=== PATIENT | male | born 1990 | race African-American/Black ===

== ENCOUNTER 2016-04-30 09:09 | Emergency (ER) ==
[2016-04-30 09:17] VITALS: BP 169/111
[2016-04-30] MEDS ORDERED: DECADRON IM ONE (10:20)
--- NOTE | 2016-04-30 10:23 | PROVIDER DOCUMENTATION ---
HPI-General Adult <JacobSaraleslie Broussard - Last Filed: 04/30/16 10:21> - General Source: patient - History of Present Illness -Gen Adult Nature of Presenting Problems: Pt is 25 y/o M presents to the ED with eczema like rash. Pt states worsening of rash. Pt states unsure of onset of rash. Pt denies recent illness or drug use Location of Pain/Injury: reports: head, upper extremity (bilateral forearms and hands) Pain Radiation: reports: no radiation Quality of Pain: reports: none Severity: reports: mild Onset/Duration: reports: unsure Timing: reports: still present Context/Activities at Onset: reports: light activity Modifying Factors: improves with: nothing Associated Symptoms: reports: rash. denies: anxiety, arm pain, back/neck pain, chest pain, constipation, cough, diaphoresis, diarrhea, dizziness, EENT symptoms , fatigue, fever/chills, genitourinary problems, headaches, heartburn, joint pain, loss of appetite, malaise, muscle aches, sinus congestion/drainage, nausea , seizure, shortness of breath, sensory/motor loss, pain with inspiration, swelling/mass in abdomen, syncope, vomiting, weakness, trouble walking Similar Symptoms Previously?: Yes Recently seen or treated by another doctor?: No <Kely Villalobos - Last Filed: 04/30/16 10:35> - General Chief Complaint: Sores/Lesions Stated Complaint: BLISTERS ON HANDS Time Seen by Provider: 04/30/16 10:12 Allergies/Adverse Reactions: Patient Allergies Allergy/AdvReac Type Severity Reaction Status Date / Time No Known Allergies Allergy Verified 01/12/16 19:25 Home Medications: Home Medication List Medication Instructions Recorded Confirmed Last Taken Type Aspirin 325 mg PO DAILY #90 tablet 03/01/15 01/12/16 Unknown Rx Carvedilol [Coreg] 6.25 mg PO BID #60 tablet 03/01/15 01/12/16 Unknown Rx Furosemide [Lasix] 40 mg PO BID #180 tablet 03/01/15 01/12/16 Unknown Rx Hydralazine [Apresoline] 50 mg PO TID@0600,1300,1999 #180 03/01/15 01/12/16 Unknown Rx tablet Isosorbide Dinitrate [Isordil] 40 mg PO TID@0600,1300,1999 #180 03/01/15 Unknown Rx tablet LISINOpril [Prinivil] 20 mg PO BID #120 tablet 03/01/15 01/12/16 Unknown Rx PRAVAstatin [Pravachol] 40 mg PO QHS #90 tablet 03/01/15 01/12/16 Unknown Rx Spironolactone [Aldactone] 25 mg PO QAM #90 tablet 03/01/15 01/12/16 Unknown Rx Bisacodyl [Dulcolax] 10 mg GA QHS #20 supp 01/10/16 01/12/16 Unknown Rx Na Phos,M-B/Na Phos,Di-Ba [Fleet 133 ml GA HS PRN PRN #3 enema 01/10/16 Unknown Rx Enema] Ondansetron Odt [Zofran 8Mg Odt] 8 mg PO Q8H PRN PRN #20 tablet 01/10/16 Unknown Rx Polyethylene Glycol 3350 [Miralax] 255 gm PO DAILY #1 powder 01/10/16 01/12/16 Unknown Rx Amoxicillin 875 mg PO BID #20 tablet 01/12/16 Unknown Rx Carbamide Peroxide/Sea Water [[facility] 113 ml OT DIRECTED #1 combo..pkg 04/30/16 Unknown Rx Ear Wax Cleansing System] Prednisone [Deltasone] 20 mg PO DIRECTED #12 tablet 04/30/16 Unknown Rx Triamcinolone 0.1% Cr [Kenalog 1 applicatn TOP TID #1 tube 04/30/16 Unknown Rx 0.1% Cream] Review of Systems - Adult - REVIEW OF SYSTEMS - ADULT Constitutional: denies: chills, fever Eyes: denies: blurred vision, double vision Ears, Nose, Mouth & Throat: reports: ear pain (L). denies: nose pain, throat pain Cardiovascular: denies: chest pain, edema, heart murmur, irregular heart rate Respiratory: denies: cough, shortness of breath, wheezing Gastrointestinal: denies: abdominal pain, diarrhea, nausea, vomiting Genitourinary: denies: dysuria, hematuria Musculoskeletal: denies: bone pain, joint pain, neck pain Integumentary: reports: rash. denies: hives, itching Neurological: denies: dizziness/vertigo, headache/migraines Psychiatric: reports: no symptoms reported Endocrine: reports: no symptoms reported Hematologic/Lymphatic: reports: no symptoms reported Allergic/Immunologic: reports: no symptoms reported All Other Systems: Reviewed and Negative <Kely Villalobos - Last Filed: 04/30/16 10:35> Past History - Adult - PAST MEDICAL HISTORY-ADULT Major Childhood Illnesses: reports: denies history Cardiovascular: reports: CHF, HTN Respiratory: reports: COPD, pneumonia Gastrointestinal: reports: denies history Obstetrical/Gynecological: reports: denies history Genitourinary: reports: denies history Musculoskeletal: reports: denies history Neurological: reports: denies history Endocrine/Immune: reports: denies history Other Conditions: reports: denies history - PRIOR SURGERIES/PROCEDURES Surgical/Procedure History: reports: orthopedic (extremity) - IMMUNIZATION STATUS Childhood Immunizations: See Nurse Assessment Flu Vaccine: See Nurse Assessment - FAMILY HISTORY Family History: reviewed, not pertinent <Sara James - Last Filed: 04/30/16 10:21> - PAST MEDICAL HISTORY-ADULT Review of Records: reports: Nursing Assessment Review, Medications Reviewed, Social history reviewed & non-contributory. Major Childhood Illnesses: reports: denies history Cardiovascular: reports: CHF, HTN, hyperlipidemia Respiratory: reports: denies history Gastrointestinal: reports: denies history Obstetrical/Gynecological: reports: denies history Genitourinary: reports: denies history Musculoskeletal: reports: denies history Neurological: reports: denies history Endocrine/Immune: reports: denies history Other Conditions: reports: denies history - PRIOR SURGERIES/PROCEDURES Surgical/Procedure History: reports: reviewed, not pertinent - IMMUNIZATION STATUS Childhood Immunizations: See Nurse Assessment Flu Vaccine: See Nurse Assessment - FAMILY HISTORY Family History: reviewed, not pertinent - SOCIAL HISTORY Smoking: cigarettes, less than 1 pack/day Provider spent 3-5 mins advising pt. on dangers of tobacco.: Discussed manners to quit use, and f/u contacts for add'l counseling. Substance Use: denies Living Situation: family <Kely Villalobos - Last Filed: 04/30/16 10:35> Physical Exam-General - PHYSICAL EXAM-ADULT Initial Vital Signs Reviewed: Yes - CONSTITUTIONAL General Appearance: appears well, alert, no apparent distress - EYES Eyes: PERRL/EOMI, pink conjunctivae, fundi clear, no AV nicking - HEAD, EARS, NOSE, MOUTH & THROAT HENMT: normocephalic/atraumatic, moist mucous membranes, normal ENT inspection, pharynx normal, TM abnormal (wax impaction to L ear), other (dandruff present) - NECK Neck: non-tender, full range of motion, supple, normal inspection - RESPIRATORY Respiratory: chest non-tender, lungs clear, normal breath sounds, no pleuratic chest pain, no respiratory distress, no accessory muscle use - CARDIOVASCULAR Cardiovascular: normal peripheral pulses, regular rate, rhythm, no edema, no gallop, no JVD, no murmur - GASTROINTESTINAL (ABDOMEN) Abdominal Exam: normal bowel sounds, non tender, soft, no organomegaly, no pulsatile mass - LYMPHATIC Lymphatic: no adenopathy - MUSCULOSKELETAL Back Exam: normal inspection, no CVA tenderness, no vertebral tenderness Extremity: normal range of motion, non-tender, normal gait, normal inspection, no pedal edema, no calf tenderness, normal capillary refill - SKIN Integumentary: normal color, normal turgor, warm/dry, rash (eczema like rash to bilateral forearm and hands with plaquing), other (drandruff to scalp) - NEUROLOGIC Neurologic: grossly normal - PSYCHIATRIC Psych/Mental Status: normal mood/affect, oriented x 3 <Kely Villalobos - Last Filed: 04/30/16 10:35> Progress - PLAN OF CARE/RESULTS Progress/Plan/Lab Results: Orders Category Date Time Status Dexamethasone [Decadron] Med 04/30/16 10:20 Discontinued 10 mg IM NOW ONE Vital Signs - 24 hr 04/30/16 09:15 Temperature 97.6 F Pulse Rate 84 Respiratory 18 Rate Blood Pressure 169/111 O2 Sat by Pulse 100 Oximetry <Kely Villalobos - Last Filed: 04/30/16 10:35> Departure - Departure Time of Disposition Order: 10:21 Certified Medical Emergency: Emergent <Sara James - Last Filed: 04/30/16 10:21> <Kely Villalobos - Last Filed: 04/30/16 10:35> - Departure DIAGNOSIS: Eczema, dyshidrotic Cerumen impaction Qualifiers: Laterality: left Qualified Code(s): H61.22 - Impacted cerumen, left ear Disposition: HOME 01 Condition: Stable Additional Instructions: Follow up with your primary care physician ED Follow Up Instructions: You have been treated by a care provider in the Emergency Department. These instructions are being provided to you so you can have an understanding of how to care for yourself upon discharge. Upon discharge from the Emergency Department, you are responsible for making arrangements for follow-up care by a physician of your choice. Take all prescribed medications as directed. Return to the Emergency Department immediately for any new or worsening symptoms. You may call the Physician Referral phone number at [phone] to obtain a list of Physicians who are taking new patients. Prescriptions: Carbamide Peroxide/Sea Water [[facility] Ear Wax Cleansing System] 113 ml OT DIRECTED #1 combo..pkg Prednisone [Deltasone] 20 mg PO DIRECTED #12 tablet Triamcinolone 0.1% Cr [Kenalog 0.1% Cream] 1 applicatn TOP TID #1 tube Referrals: None,PCP [Primary Care Provider] - Samantha Goff MD [STAFF PHYSICIAN] - Forms: Return to School/Parent Work Instructions: Pruritus, Carbamide Peroxide ear solution, Cerumen Impaction, Prednisone delayed-release tablets, Triamcinolone skin cream, ointment, lotion, or aerosol Attestation - Scribe Verification/Attestation Scribe:: Kely Villalobos Acting as Scribe for:: Sara James Scribe documention review:: This chart was documented by a scribe and accurately reflects the service the provider performed and the decisions made by the provider. <Kely Villalobos - Last Filed: 04/30/16 10:35> Physician Attestation
== END 2016-04-30 10:37 | disposition home or self-care (01) ==
LOC: P.ED 09:09
DX: L30.1 Dyshidrosis [pompholyx] (principal); H61.22 Impacted cerumen, left ear; R21 Rash and other nonspecific skin eruption; H92.02 Otalgia, left ear; L21.0 Seborrhea capitis; I50.9 Heart failure, unspecified; I10 Essential (primary) hypertension; J44.9 Chronic obstructive pulmonary disease, unspecified; F17.210 Nicotine dependence, cigarettes, uncomplicated; Z79.82 Long term (current) use of aspirin; Z79.899 Other long term (current) drug therapy; Z71.6 Tobacco abuse counseling
CPT/HCPCS: 99281

== ENCOUNTER 2018-08-18 15:15 | Inpatient (IN) ==
[2018-08-18] MEDS ORDERED: NS 1,000 ML IV ONE ×3 (15:46→15:47)
[2018-08-18] MEDS ORDERED: MORPHINE IV ONE (16:11)
[2018-08-18] MEDS ORDERED: SODIUM CHLORIDE 0.9% INJ ONE (16:13)
[2018-08-18] MEDS ORDERED: PHENERGAN IV ONE (16:13)
[2018-08-18 16:15] LABS: BASO# 0.02 X1000 (0.0-0.2); BASO% 0.1 % (0.0-0.8); HEMATOCRIT 45.2 % (42.0-52.0); HEMOGLOBIN 16.4 g/dL (14.0-18.0); IMM GRAN# 0.11 X1000 (0.0-0.04); IMM GRAN% 0.8 % (0.0-0.5); LYMPH# 0.28 X1000 (1.2-3.4); LYMPH% 2.1 % (20.5-51.1); MCH 30.8 PG (27-31); MCHC 36.3 g/dL (33-37); MCV 84.8 FL (81-99); MONO# 0.59 X1000 (0.11-0.59); MONO% 4.4 % (1.7-9.3); MPV 11.6 FL (7.4-10.4); NEUT# 12.48 X1000 (1.4-6.5); NEUT% 92.6 % (42.2-75.2); PLT 112 X1000 (130-400); RBC 5.33 XMIL (4.7-6.1); RDW 11.7 % (11.5-14.5); WBC 13.48 X1000 (4.8-10.8)
[2018-08-18 16:21] LABS: INR 1.4; PROTIME 18.2 Seconds (11.0-16.0)
[2018-08-18 16:23] LABS: LYMPHS 4 % (21-51); MONO 6 % (1-9); SEGS 90 % (42-75)
[2018-08-18 16:34] LABS: ALB/GLOB RATIO 1.2; ALBUMIN 3.9 g/dL (3.5-5.0); CALCIUM 9.1 mg/dL (8.8-10.2); CREATININE 2.2 mg/dL (0.7-1.2); POTASSIUM 3.4 mmol/L (3.5-5.1); TOTAL BILIRUBIN 3.48 mg/dL (0.20-1.00); TOTAL PROTEIN 7.2 g/dL (6.3-8.3)
--- NOTE | 2018-08-18 17:00 | Diag Imaging Result Doc PS360 ---
EXAM: CHEST-2 VIEWS 08/18/2018 HISTORY: shortness of breath TECHNIQUE: AP and lateral chest COMMENT: The left ventricle appears enlarged. The lungs are clear. The inspiration is suboptimal. Otherwise are has been no significant change since 08/16/2018. IMPRESSION: Cardiomegaly. Electronically signed by Janak Farr 08/18/2018 4:57 PM
[2018-08-18 17:49] LABS: URINE SOURCE CLEAN CATCH
[2018-08-18 17:58] LABS: BILIRUBIN URINE SMALL (NEGATIVE); BLOOD URINE MODERATE (NEGATIVE); COLOR ORANGE; GLUCOSE URINE NEGATIVE (NEGATIVE); KETONE URINE TRACE mg/dL (NEGATIVE); LEUKOCYTES URINE MODERATE (NEGATIVE); NITRITE URINE NEGATIVE (NEGATIVE); PROTEIN URINE 300 mg/dL (NEGATIVE); SP GRAVITY URINE 1.034; TURBIDITY URINE TURBID (CLEAR); UR EPITHELIAL CELLS >10 /HPF (<10); URINE BACTERIA NEGATIVE /HPF; URINE RBC <10 /HPF (<10); URINE WBC TNTC /HPF (<10); UROBILINOGEN URINE 2 mg/dL (NORMAL)
[2018-08-18 18:14] LABS: UR AMPHETAMINES QUAL NONE DETECTED (NONE DETECT); UR BARBITUATES QUAL NONE DETECTED (NONE DETECT); UR BENZODIAZEPIN QUAL NONE DETECTED (NONE DETECT); UR CANNABINOIDS QUAL PRESUMPTIVE POSITIVE (NONE DETECT); UR COCAINE QUAL NONE DETECTED (NONE DETECT); UR METHADONE QUAL NONE DETECTED (NONE DETECT); UR OPIATES QUAL PRESUMPTIVE POSITIVE (NONE DETECT); UR OXYCODONE QUAL NONE DETECTED (NONE DETECT); UR PCP QUAL NONE DETECTED (NONE DETECT)
[2018-08-18 18:15] LABS: URINE YEAST PRESENT
[2018-08-18 18:16] LABS: URINE CASTS GRANULAR PRESENT; URINE CRYSTALS NONE SEEN; URINE SMALL ROUND CELLS NONE SEEN
--- NOTE | 2018-08-18 18:51 | PROVIDER DOCUMENTATION ---
This chart was entered by Samantha Ardon Scribe, acting as scribe for Mauricio Mahajan DO. HPI-General Adult - General Source: patient, family - History of Present Illness -Gen Adult Nature of Presenting Problems: 27 yobm presents to the ed with c/o KIMBALL, nausea, vomiting, diaphoresis, fever, tachycardia and RUQ tenderness with palpation for 2 weeks. pt sts went to [facility] er on 08/16/18 and was given abx but did not get it filled. pt sts sx have became much worse. pt on exam is ill appearing and is actively vomiting radiologist read chest xray as negative on 08/16/18 Location of Pain/Injury: reports: abdomen, generalized (generalized weakness) Quality of Pain: reports: cramping Severity: reports: moderate Onset/Duration: reports: other (2 weeks) Timing: reports: still present, getting worse Context/Activities at Onset: reports: light activity Modifying Factors: improves with: nothing Associated Symptoms: reports: cough, fatigue, fever/chills, malaise, muscle aches, nausea, vomiting. denies: back/neck pain, chest pain, shortness of breath Similar Symptoms Previously?: Yes Recently seen or treated by another doctor?: Yes (saw dr lopez 08/16/18) <Mauricio Mahajan - Last Filed: 08/18/18 18:50> <Chloe Gonzalez - Last Filed: 08/18/18 20:41> - General Chief Complaint: Headache Stated Complaint: FEVER,KIMBALL Time Seen by Provider: 08/18/18 15:36 Allergies/Adverse Reactions: Patient Allergies Allergy/AdvReac Type Severity Reaction Status Date / Time Latex, Natural Rubber Allergy RASH Verified 02/08/17 20:41 Home Medications: Home Medication List Medication Instructions Recorded Confirmed Last Taken Type Carvedilol [Coreg] 6.25 mg PO BID #60 tablet 03/01/15 02/01/17 01/30/17 20:00 Rx PRAVAstatin [Pravachol] 40 mg PO QHS #90 tablet 03/01/15 02/01/17 01/30/17 20:00 Rx Spironolactone [Aldactone] 25 mg PO QAM #90 tablet 03/01/15 02/01/17 01/31/17 07:00 Rx Esomeprazole [Nexium] 40 mg PO DAILY 01/31/17 02/01/17 01/31/17 07:00 History Hydralazine [Apresoline] 25 mg PO TID@0600,1300,2000 tablet 02/06/17 Unknown Rx Isosorbide Dinitrate [Isordil] 20 mg PO TID@0600,1300,2000 tablet 02/06/17 Unknown Rx LISINOpril [Prinivil] 10 mg PO DAILY tablet 02/06/17 Unknown Rx Torsemide [Demadex] 20 mg PO DAILY #30 tab 02/06/17 Unknown Rx Hydrocodone/Acetaminophen [[place] 1 ea PO Q6H PRN #12 tab 02/09/17 Unknown Rx 5-325 Tablet] Ondansetron HCl [Zofran] 1 tab PO Q6H PRN PRN #15 tab 02/09/17 Unknown Rx Diphenhydramine [Benadryl] 25 mg PO Q4-6H PRN PRN #20 cap 07/27/17 Unknown Rx Loratadine [Claritin] 10 mg PO DAILY #10 tab 07/27/17 Unknown Rx Methylprednisolone [Medrol Dosepak] 4 mg PO DIRECTED #1 pkg 07/27/17 Unknown Rx Pantoprazole [Protonix] 40 mg PO DAILY@0700 #10 tab 07/27/17 Unknown Rx Tacrolimus [Protopic] 30 gm TP BID #1 oint...g. 01/06/18 Unknown Rx Hydrochlorothiazide 25 mg PO TID PRN PRN #10 tab 06/23/18 Unknown Rx LISINOpril [Prinivil] 10 mg PO DAILY #10 tab 06/23/18 Unknown Rx Amoxicillin/Pot Clavulanate 875 mg PO Q12HR #14 tab 08/16/18 Unknown Rx [Augmentin] Benzonatate [Tessalon Perle] 100 mg PO TID PRN #20 cap 08/16/18 Unknown Rx Review of Systems - Adult - REVIEW OF SYSTEMS - ADULT ROS:: ROS per family Constitutional: reports: see HPI, chills, fever Eyes: reports: no symptoms reported Ears, Nose, Mouth & Throat: reports: no symptoms reported Cardiovascular: denies: chest pain, palpitations Respiratory: reports: see HPI, cough. denies: shortness of breath, wheezing Gastrointestinal: reports: see HPI, abdominal pain, nausea, poor appetite, vomiting. denies: diarrhea Genitourinary: reports: no symptoms reported Musculoskeletal: reports: see HPI, muscle aches Integumentary: reports: no symptoms reported Neurological: reports: see HPI, headache/migraines. denies: ataxia, dizziness/vertigo, slurred speech, syncope, tremors Psychiatric: reports: no symptoms reported Endocrine: reports: see HPI, excessive sweating, increased thirst Hematologic/Lymphatic: reports: no symptoms reported Allergic/Immunologic: reports: no symptoms reported All Other Systems: Reviewed and Negative <Mauricio Mahajan - Last Filed: 08/18/18 18:50> Past History - Adult - PAST MEDICAL HISTORY-ADULT Review of Records: reports: Old Records Reviewed, Nursing Assessment Review, Medications Reviewed, Social history reviewed & non-contributory. Major Childhood Illnesses: reports: denies history Cardiovascular: reports: CHF, HTN, hyperlipidemia Respiratory: reports: denies history Gastrointestinal: reports: denies history Genitourinary: reports: denies history Musculoskeletal: reports: denies history Hand Dominance: Right Handed Neurological: reports: denies history Psychiatric: reports: denies history Endocrine/Immune: reports: hypoglycemia Other Conditions: reports: denies history - PRIOR SURGERIES/PROCEDURES Surgical/Procedure History: reports: orthopedic (extremity) - IMMUNIZATION STATUS Childhood Immunizations: See Nurse Assessment Flu Vaccine: See Nurse Assessment - FAMILY HISTORY Family History: reviewed, not pertinent - SOCIAL HISTORY Smoking: cigarettes, less than 1 pack/day Provider spent 3-5 mins advising pt. on dangers of tobacco.: Discussed manners to quit use, and f/u contacts for add'l counseling. Substance Use: denies Alcohol Use Frequency: never Living Situation: family <Mauricio Mahajan - Last Filed: 08/18/18 18:50> Physical Exam-General - PHYSICAL EXAM-ADULT Initial Vital Signs Reviewed: Yes - CONSTITUTIONAL General Appearance: alert, moderate distress. negative: appears well (ill appearing) - EYES Eyes: PERRL/EOMI, pale conjunctivae - HEAD, EARS, NOSE, MOUTH & THROAT HENMT: normal ENT inspection. negative: moist mucous membranes (dry oral) - NECK Neck: normal inspection - RESPIRATORY Respiratory: chest non-tender, lungs clear, normal breath sounds, no pleuratic chest pain, no respiratory distress, no accessory muscle use - CARDIOVASCULAR Cardiovascular: normal peripheral pulses, tachycardia (125), systolic murmur - GASTROINTESTINAL (ABDOMEN) Abdominal Exam: normal bowel sounds, soft, tenderness - LYMPHATIC Lymphatic: no adenopathy - MUSCULOSKELETAL Back Exam: normal inspection, no CVA tenderness, no vertebral tenderness Extremity: normal range of motion, non-tender, no calf tenderness, normal capillary refill, pelvis stable - SKIN Integumentary: normal color, diaphoresis - NEUROLOGIC Neurologic: grossly normal, no motor/sensory deficits - PSYCHIATRIC Psych/Mental Status: normal mood/affect, normal thought content, normal thought process, oriented x 3 <Mauricio Mahajan - Last Filed: 08/18/18 18:50> Progress - PLAN OF CARE/RESULTS Progress/Plan/Lab Results: Vital Signs - 8 hr 08/18/18 15:17 Temperature 99.5 F Pulse Rate 70 Respiratory Rate 22 Blood Pressure 129/82 O2 Sat by Pulse Oximetry 97 Orders Category Date Time Status Cardiac Monitoring DIRECTED Care 08/18/18 15:42 Active IV Insertion ORDERED Care 08/18/18 15:42 Active Notify MD of + Sepsis Screen NOW Care 08/18/18 15:42 Active Notify Physician As Ordered Care 08/18/18 15:42 Active CHEST-2 VIEWS [RAD] Stat Exams 08/18/18 15:44 Ordered BLOOD CULTURE [BLDCUL] Stat Lab 08/18/18 15:42 Uncollected CBC WITH DIFF [HEME] Stat Lab 08/18/18 15:42 Uncollected CK PROFILE [SP CHEM] Stat Lab 08/18/18 15:42 Uncollected COMPREHENSIVE METABOLIC PANEL [CHEM] Stat Lab 08/18/18 15:42 Uncollected LACTATE, PLASMA [CHEM] Q3H Lab 08/18/18 15:45 Uncollected LACTATE, PLASMA [CHEM] Q3H Lab 08/18/18 18:45 Uncollected LACTATE, PLASMA [CHEM] Q3H Lab 08/18/18 21:45 Uncollected PROTIME WITH INR [COAG] Stat Lab 08/18/18 15:42 Uncollected PTT [COAG] Stat Lab 08/18/18 15:42 Uncollected TROPONIN T Stat Lab 08/18/18 15:42 Uncollected URINALYSIS W/POSS RFLX CULT [URINALYSIS] Stat Lab 08/18/18 15:42 Uncollected Ns 1000 ml IV Bolus X1 Med 08/18/18 15:46 Ordered 0.9% Sodium Chloride Inj [Ns] 1,000 ml IV 999 mls/hr Oxygen Device Stat Oth 08/18/18 15:42 Active Result Diagrams: 08/18/18 15:55 08/18/18 15:55 - REASSESSMENT Reassessment #1 Time Reassessed: 16:01 (vomiting has improved ) Status: improving - EKG 1 Time of EKG reading by physician:: 15:42 EKG Read and Signed by:: Mauricio Mahajan EKG Interpretation (*Must complete 3 of following elements*): Normal (borderline) Rate: 122 Rhythm: sinus tachycardia [place]: normal QRS: normal SC Interval: normal ST Wave: normal Comments: possible left atrial enlargement - XRAY 1 XRAY: Bilateral XRAY Study: Chest Impression: See EMR Report (EXAM: CHEST-2 VIEWS 08/18/2018 HISTORY: shortness of breath TECHNIQUE: AP and lateral chest COMMENT: The left ventricle appears enlarged. The lungs are clear. The inspiration is suboptimal. Otherwise are has been no significant change since 08/16/2018. IMPRESSION: Cardiomegaly. Electronically signed by Janak Farr 08/18/2018 4:57 PM 08/18/[id number] Interpreting Physician: Janak Farr MD Dictated Date/Time: 08/18/181655 cc: Mauricio Mahajan DO; None,PCP) - CHANGE OF SHIFT REPORT (ED Provider) 1 Report Given and Care Transferred to:: Dr Pace Time of Transfer: 19:00 Items Pending: Labs, CT/MRI Results <Mauricio Mahajan - Last Filed: 08/18/18 18:50> - PLAN OF CARE/RESULTS Progress/Plan/Lab Results: Vital Signs - 8 hr 08/18/18 15:17 08/18/18 15:29 08/18/18 15:30 Temperature 99.5 F Pulse Rate 70 Respiratory Rate 22 Blood Pressure 129/82 112/88 O2 Sat by Pulse Oximetry 97 99 98 08/18/18 15:40 08/18/18 15:50 08/18/18 16:00 Temperature Pulse Rate 123 H 128 H 126 H Respiratory Rate 30 H 18 24 Blood Pressure O2 Sat by Pulse Oximetry 100 97 97 08/18/18 16:05 08/18/18 18:17 Temperature Pulse Rate 128 H 113 H Respiratory Rate 38 H 18 Blood Pressure 138/86 134/84 O2 Sat by Pulse Oximetry 100 100 Laboratory Results - last 24 hr 08/18/18 08/18/18 08/18/18 15:55 15:55 15:55 WBC 13.48 H RBC 5.33 Hgb 16.4 Hct 45.2 MCV 84.8 MCH 30.8 MCHC 36.3 RDW Std Deviation 11.7 Plt Count 112 L MPV 11.6 H Immature Gran % (Auto) 0.8 H Neut % (Auto) 92.6 H Lymph % (Auto) 2.1 L [place] % (Auto) 4.4 Eos % (Auto) 0.0 Baso % (Auto) 0.1 Immature Gran # (Auto) 0.11 H Neut # (Auto) 12.48 H Lymph # (Auto) 0.28 L [place] # (Auto) 0.59 Eos # (Auto) 0.00 Baso # (Auto) 0.02 Segmented Neutrophils 90 H Lymphocytes 4 L Monocytes 6 PT 18.2 H INR 1.40 PTT (Actin FS) 39.0 Sodium 131 L Potassium 3.4 L Chloride 93 L Carbon Dioxide 18 L Anion Gap 20 BUN 35 H Creatinine 2.2 H Estimated GFR/1.73 m2 43 BUN/Creatinine Ratio 16 Glucose 115 H Calculated Osmolality 272 Calcium 9.1 Total Bilirubin 3.48 H AST 106 H ALT 106 H Alkaline Phosphatase 66 Creatine Kinase 54 Troponin T Total Protein 7.2 Albumin 3.9 Globulin 3.3 Albumin/Globulin Ratio 1.2 Amylase Lipase Plasma Lactate Urine Source Urine Color Urine Turbidity Urine pH Ur Specific [place] Urine Protein Ur Glucose (Stick) Ur Ketones (Stick) Urine Blood Urine Nitrite Urine Bilirubin Urobilinogen Dipstick Urine Leukocytes Urine WBC (Auto) Urine RBC (Auto) U Epithel Cells (Auto) Urine Bacteria (Auto) Urine Crystals Small Round Cells Urine Casts Urine Yeast-like Cells Urine Opiates Screen Ur Oxycodone Screen Ur Methadone, Qual Ur Barbiturates Screen Ur Phencyclidine Scrn Ur Amphetamines Screen U Benzodiazepines Scrn Urine Cocaine Screen U Cannabinoids Screen 08/18/18 08/18/18 08/18/18 15:55 15:55 15:55 WBC RBC Hgb Hct MCV MCH MCHC RDW Std Deviation Plt Count MPV Immature Gran % (Auto) Neut % (Auto) Lymph % (Auto) [place] % (Auto) Eos % (Auto) Baso % (Auto) Immature Gran # (Auto) Neut # (Auto) Lymph # (Auto) [place] # (Auto) Eos # (Auto) Baso # (Auto) Segmented Neutrophils Lymphocytes Monocytes PT INR PTT (Actin FS) Sodium Potassium Chloride Carbon Dioxide Anion Gap BUN Creatinine Estimated GFR/1.73 m2 BUN/Creatinine Ratio Glucose Calculated Osmolality Calcium Total Bilirubin AST ALT Alkaline Phosphatase Creatine Kinase Troponin T < 0.010 Total Protein Albumin Globulin Albumin/Globulin Ratio Amylase 47 Lipase 12 L Plasma Lactate 4.2 H Urine Source Urine Color Urine Turbidity Urine pH Ur Specific [place] Urine Protein Ur Glucose (Stick) Ur Ketones (Stick) Urine Blood Urine Nitrite Urine Bilirubin Urobilinogen Dipstick Urine Leukocytes Urine WBC (Auto) Urine RBC (Auto) U Epithel Cells (Auto) Urine Bacteria (Auto) Urine Crystals Small Round Cells Urine Casts Urine Yeast-like Cells Urine Opiates Screen Ur Oxycodone Screen Ur Methadone, Qual Ur Barbiturates Screen Ur Phencyclidine Scrn Ur Amphetamines Screen U Benzodiazepines Scrn Urine Cocaine Screen U Cannabinoids Screen 08/18/18 08/18/18 08/18/18 15:57 15:57 19:02 WBC RBC Hgb Hct MCV MCH MCHC RDW Std Deviation Plt Count MPV Immature Gran % (Auto) Neut % (Auto) Lymph % (Auto) [place] % (Auto) Eos % (Auto) Baso % (Auto) Immature Gran # (Auto) Neut # (Auto) Lymph # (Auto) [place] # (Auto) Eos # (Auto) Baso # (Auto) Segmented Neutrophils Lymphocytes Monocytes PT INR PTT (Actin FS) Sodium Potassium Chloride Carbon Dioxide Anion Gap BUN Creatinine Estimated GFR/1.73 m2 BUN/Creatinine Ratio Glucose Calculated Osmolality Calcium Total Bilirubin AST ALT Alkaline Phosphatase Creatine Kinase Troponin T Total Protein Albumin Globulin Albumin/Globulin Ratio Amylase Lipase Plasma Lactate 2.5 H Urine Source CLEAN CATCH Urine Color ORANGE Urine Turbidity TURBID Urine pH 6.0 Ur Specific [place] 1.034 Urine Protein 300 A Ur Glucose (Stick) NEGATIVE Ur Ketones (Stick) TRACE A Urine Blood MODERATE A Urine Nitrite NEGATIVE Urine Bilirubin SMALL A Urobilinogen Dipstick 2 A Urine Leukocytes MODERATE A Urine WBC (Auto) TNTC A Urine RBC (Auto) <10 U Epithel Cells (Auto) >10 A Urine Bacteria (Auto) NEGATIVE Urine Crystals NONE SEEN Small Round Cells NONE SEEN Urine Casts GRANULAR PRESENT Urine Yeast-like Cells PRESENT Urine Opiates Screen PRESUMPTIVE POSITIVE A Ur Oxycodone Screen NONE DETECTED Ur Methadone, Qual NONE DETECTED Ur Barbiturates Screen NONE DETECTED Ur Phencyclidine Scrn NONE DETECTED Ur Amphetamines Screen NONE DETECTED U Benzodiazepines Scrn NONE DETECTED Urine Cocaine Screen NONE DETECTED U Cannabinoids Screen PRESUMPTIVE POSITIVE A Orders Category Date Time Status Cardiac Monitoring DIRECTED Care 08/18/18 15:42 Active IV Insertion ORDERED Care 08/18/18 15:42 Completed Notify MD of + Sepsis Screen NOW Care 08/18/18 15:42 Active Notify Physician As Ordered Care 08/18/18 15:42 Active CHEST-2 VIEWS [RAD] Stat Exams 08/18/18 15:[address] ABDOMEN/PELVIS W/O CONTRAST [CT] Stat Exams 08/18/18 18:32 Completed AMYLASE [CHEM] Stat Lab 08/18/18 15:55 Completed BLOOD CULTURE [BLDCUL] Stat Lab 08/18/18 15:55 Results CBC WITH DIFF [HEME] Stat Lab 08/18/18 15:55 Completed CK PROFILE [SP CHEM] Stat Lab 08/18/18 15:55 Completed COMPREHENSIVE METABOLIC PANEL [CHEM] Stat Lab 08/18/18 15:55 Completed LACTATE, PLASMA [CHEM] Lab 08/18/18 19:02 Completed LACTATE, PLASMA [CHEM] Lab 08/18/18 21:45 Uncollected LACTATE, PLASMA [CHEM] Q3H Lab 08/18/18 15:55 Completed LIPASE [CHEM] Stat Lab 08/18/18 15:55 Completed PROTIME WITH INR [COAG] Stat Lab 08/18/18 15:55 Completed PTT [COAG] Stat Lab 08/18/18 15:55 Completed TROPONIN T Stat Lab 08/18/18 15:55 Completed URINALYSIS W/POSS RFLX CULT [URINALYSIS] Stat Lab 08/18/18 15:57 Completed URINE CULTURE [RM] Routine Lab 08/18/18 18:30 Received URINE DRUG SCREEN Stat Lab 08/18/18 15:57 Completed URINE MANUAL MICROSCOPIC [URINALYSIS] Stat Lab 08/18/18 15:57 Completed 0.9% Sodium Chloride Inj [Ns] 1,000 ml Med 08/18/18 15:46 Discontinued IV 999 mls/hr 0.9% Sodium Chloride Inj [Ns] 1,000 ml Med 08/18/18 15:46 Discontinued IV 999 mls/hr 0.9% Sodium Chloride Inj [Ns] 1,000 ml Med 08/18/18 15:47 Discontinued IV 999 mls/hr Morphine Med 08/18/18 16:11 Discontinued 4 mg IV NOW ONE Promethazine [Phenergan] Med 08/18/18 16:13 Discontinued 12.5 mg IV NOW ONE Sodium Chloride 0.9% Med 08/18/18 16:13 Discontinued 10 ml INJ NOW ONE Oxygen Device Stat Oth 08/18/18 15:42 Completed Result Diagrams: 08/18/18 15:55 08/18/18 15:55 - CONSULTS/PCP/HOSPITALIST Notification #1 *Consult/PCP/Hospitalist*: D/W DR LUCERO Time Discussed: 20:35 Consult Disposition: Admit <Chloe Gonzalez - Last Filed: 08/18/18 20:41> Departure - Critical Care Note This patient required my direct & personal management of CC.: Yes Total Time (mins): 32 Critical Care Statement: This patient required my direct personal management to treat or rule out processes, the absence of which, could potentiallly result in sudden, clinically significant life or limb threatening deterioration. <Mauricio Mahajan - Last Filed: 08/18/18 18:50> - Departure Date of Disposition Decision: 08/18/18 Time of Disposition Decision: 20:39 Certified Medical Emergency: Emergent <Chloe Gonzalez - Last Filed: 08/18/18 20:41> - Departure DIAGNOSIS: Congestive heart failure, Nausea and vomiting, Tobacco use disorder, Sepsis, Headache Disposition: ADMITTED INPATIENT 09 Condition: Stable Referrals and Follow-Ups: None,PCP [Primary Care Provider] - Discharge Education: Migraine Headache, [id number] Attestation - Physician/ SHAYY Attestation Patient care was provided by Advanced Practice Provider:: No The physician spent face to face time with patient:: Yes Advanced Practice Provider documentation review:: Supervising physician onsite and consulted in the evaluation and care of this patient. The physician did have a face to face encounter with the patient. <Mauricio Mahajan - Last Filed: 08/18/18 18:50> This chart was documented by the indicated scribe, (Samantha Ardon, Lizabeth) and accurately reflects the services I performed and decisions made by me, Mauricio Mahajan DO, as attested by the provider's signature.
--- NOTE | 2018-08-18 19:10 | Diag Imaging Result Doc PS360 ---
EXAM: CT ABDOMEN/PELVIS W/O CONTRAST 08/18/2018 HISTORY: right upper quadrant pain TECHNIQUE: This exam was performed using automated exposure control, adjustment of mA or kV according to patient size, and/or use of iterative reconstruction technique. COMMENT: The current study is compared with the previous examination of 02/01/2017. Some of the pleural-based opacities which were present on the previous examination are no longer present. There are no new abnormalities. The anasarca which was present previously has largely resolved. The spleen is enlarged measuring over 14 cm in AP dimension. This has increased considerably since the previous study. There is no evidence of cholelithiasis. The pericholecystic fluid which was present previously is no longer present. The pancreas and adrenal glands are within normal limits. The kidneys are without evidence of hydronephrosis or mass. There appears to be a very tiny stone in the lower pole of the left collecting system. The liver is grossly normal given the lack of contrast. There is no evidence of bowel obstruction. The appendix is normal in appearance. The urinary bladder is not distended. There is no evidence of significant adenopathy or abdominal aortic aneurysm. The regional skeleton appears to be intact. IMPRESSION: Splenomegaly. Minimal left nephrolithiasis without evidence of hydronephrosis. Electronically signed by Janak Farr 08/18/2018 7:07 PM
[2018-08-18 20:28] LABS: AMYLASE 47 U/L (20-200); LIPASE 12 U/L (13-60)
[2018-08-18] MEDS ORDERED: ZOSYN 3.375 GM in NS 50 ML IV ONE (20:56)
[2018-08-18] MEDS ORDERED: KLOR-CON PO ONE (21:15)
[2018-08-18] MEDS ORDERED: ZOFRAN IV PRN (22:54)
[2018-08-18] MEDS ORDERED: TYLENOL PO ONE (23:06)
[2018-08-18] MEDS: MORPHINE IV PRN (23:29)
[2018-08-18] MEDS: LOVENOX SUBQ SCH (23:29)
[2018-08-19] MEDS: ZOSYN 2.25 GM in NS 50 ML IV SCH ×2 (02:43→08:26)
[2018-08-19] MEDS ORDERED: VANCOMYCIN IV PER PHARMACY MISC SCH (05:15)
[2018-08-19 06:15] LABS: AGAP 12; ALB/GLOB RATIO 0.8; ALBUMIN 2.8 g/dL (3.5-5.0); ALKALINE PHOSPHATASE 60 U/L (32-122); BUN 31 mg/dL (8-22); CALCIUM 7.9 mg/dL (8.8-10.2); CHLORIDE 97 mmol/L (98-107); COSMO 271; CREATININE 1.4 mg/dL (0.7-1.2); ESTIMATED GFR > 60; GLUCOSE 98 mg/dL (70-104); MAGNESIUM 1.5 mg/dL (1.5-2.7); POTASSIUM 3.4 mmol/L (3.5-5.1); SODIUM 132 mmol/L (136-145); TCO2 23 mmol/L (25-35); TOTAL BILIRUBIN 2.75 mg/dL (0.20-1.00); TOTAL PROTEIN 6.3 g/dL (6.3-8.3)
[2018-08-19 06:25] LABS: GOT 109 U/L (10-34); GPT 115 U/L (10-44)
[2018-08-19 07:16] LABS: BASO# 0.02 X1000 (0.0-0.2); BASO% 0.2 % (0.0-0.8); EOS# 0.02 X1000 (0.0-0.7); EOS% 0.2 % (0.0-10.0); HEMATOCRIT 39.4 % (42.0-52.0); HEMOGLOBIN 14.2 g/dL (14.0-18.0); IMM GRAN# 0.04 X1000 (0.0-0.04); IMM GRAN% 0.4 % (0.0-0.5); LYMPH# 0.74 X1000 (1.2-3.4); LYMPH% 6.8 % (20.5-51.1); MCH 31.3 PG (27-31); MONO# 1.91 X1000 (0.11-0.59); MONO% 17.5 % (1.7-9.3); MPV 12.4 FL (7.4-10.4); NEUT# 8.16 X1000 (1.4-6.5); NEUT% 74.9 % (42.2-75.2); PLT 77 X1000 (130-400); RBC 4.53 XMIL (4.7-6.1); WBC 10.89 X1000 (4.8-10.8)
[2018-08-19] MEDS ORDERED: VANCOMYCIN 1,600 MG in NS 250 ML IV ONE (08:00)
--- NOTE | 2018-08-19 08:07 | EKG Report ---
Test Performed on : 08/18/2018 3:42:20 PM Test Reason : ED. NO EKG ORDER FOR MUSE Blood Pressure : / mmHG Vent. Rate : 122 BPM Atrial Rate : 122 BPM P-R Int : 140 ms QRS Dur : 086 ms QT Int : 306 ms P-R-T Axes : 056 023 023 degrees QTc Int : 436 ms Sinus tachycardia. Possible Left atrial enlargement Borderline ECG When compared with ECG of 23-JUN-2018 10:58, (Unconfirmed) Vent. rate has increased BY 53 BPM Unconfirmed Result
[2018-08-19] MEDS: MORPHINE IV PRN ×2 (09:19→22:43)
--- NOTE | 2018-08-19 10:38 | PROGRESS NOTE ---
DATE: 08/19/2018 SUBJECTIVE: This morning, Mr. Panda was seen in his hospital bed. The mother was at the bedside. He refers to be still having some generalized pains and headaches. OBJECTIVE: Current Vital Signs: Blood pressure 99/74, pulse of 80, respirations 14, temperature 98.4 degrees, the patient is saturating 98% on room air. General: Mr. Panda is a 27-year-old gentleman. He is in bed. No distress. HEENT: Mucosa is pink and moist. Anicteric. Acyanotic. Neck: Supple. No JVD. No carotid bruit. Chest: Good air entry bilaterally. Few crackles posteriorly. Cardiovascular: Regular rate and rhythm. Abdomen: Soft, nontender. Extremities: No pedal edema. ENGAGEMENT QUALITY CONSULTANT: The patient is awake, alert, and oriented. IMAGING AND LABORATORY DATA: WBC is down to 10.89, hemoglobin is 14.2, platelet count of 77,000. Chemistry is also reviewed. Creatinine is 1.4, which is getting better. AST and ALT are minimally elevated. So far, blood culture is showing 2/2 gram-positive cocci. CT scan of the abdomen did show splenomegaly, minimal left nephrolithiasis, without evidence of hydronephrosis. A urine culture is still pending. Urinalysis did show too numerous to count WBCs. ASSESSMENT: 1. Sepsis with gram-positive bacteremia. We are still pending the identity and sensitivity. The patient is on broad-spectrum intravenous antibiotics for now. Infectious Disease will be consulted, and echocardiogram will be ordered to rule out any underlying endocarditis for gram- positive cocci. 2. Acute kidney injury secondary to volume depletion. We are going to continue with fluids for now, and pay very critical attention to the patient's hydration status. 3. History of severe dilated cardiomyopathy with ejection fraction of 20%, presumed to be nonischemic. Note that the patient is currently euvolemic, is actually dehydrated, so we are going to give him a little bit of fluid and pay critical attention to his fluid status. 4. Transaminitis, suspected to be part of the sepsis picture. We will do hepatitis screening to rule out underlying viral hepatitis as well. 5. Lactic acidosis secondary to sepsis. In general, I think Mr. Panda is fairly stable. He is developing gram-positive cocci in the blood. We are going to do an echocardiogram to rule out any endocarditis, and we will get Infectious Disease to see him as well. He is currently on broad-spectrum intravenous antibiotics. cc: Ender Anderson MD
[2018-08-19] MEDS: NS 1,000 ML IV SCH (12:06)
--- NOTE | 2018-08-19 12:53 | Diag Imaging Result Doc PS360 ---
EXAM: US GB < RUQ (LIMITED) HISTORY: elevated T bili and lfts TECHNIQUE: Right upper quadrant ultrasound COMPARISON: 08/18/2018 FINDINGS: Normal inferior vena cava. The aorta is predominantly obscured. No focal hepatic abnormality. There is mild fatty infiltration. No ascites in the right upper quadrant. Normal right kidney. No hydronephrosis. Normal pancreatic head and body. The tail is obscured. Normal gallbladder. No stones. The common bile duct measures 2 mm. IMPRESSION: Mild fatty infiltration of the liver. Electronically signed by Barry Su 08/19/2018 12:51 PM
[2018-08-19] MEDS ORDERED: CUBICIN 500 MG in NS 100 ML IV SCH (15:00)
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
--- NOTE | 2018-08-19 18:34 | GASTROENTEROLOGY CONSULTATION ---
DATE: 08/19/2018 REASON FOR CONSULTATION: Elevated liver function tests. HISTORY OF PRESENT ILLNESS: This is a 27-year-old male who comes in with complaints of headache, nausea, vomiting, fever and abdominal pain over the last 2 week. He initially went to [facility] on 08/16/2018. He was given some antibiotics but did not get the medication filled. His symptoms became worse so he came in to [facility] for further evaluation. The patient has had workup with findings of elevated liver function test. He had an abdominal CT scan that showed splenomegaly, minimal left nephrolithiasis without evidence of hydronephrosis. He had an ultrasound of the abdomen this morning that showed mild fatty infiltration of the liver, normal pancreatic head and body, normal gallbladder with no noted stones and common bile duct measuring 2 mm. Patient had reported some respiratory congestion, fever, right upper quadrant pain with nausea and vomiting. He has a history of congestive heart failure. 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 He states he has had workup in the past for GI symptoms and was told he had gallbladder dysfunction but surgeons did not recommend surgery because of his congestive heart failure. Patient has denied IV drug use. He does have toxicology positive for opiates and cannabinoids. Patient reports about a month ago he took a lot of pain medication and antidepressants and wanted to kill himself. His primary physician is Dr. Poole. PAST MEDICAL HISTORY: Congestive heart failure, hypertension, hyperlipidemia. PAST SURGICAL HISTORY: He has had orthopedic surgery. SOCIAL HISTORY: Positive for tobacco use less than a pack of cigarettes a day. Denies alcohol use. Denies IV drug use. Toxicology was positive for opiates and cannabinoids. ALLERGIES: Latex causing a rash. HOME MEDICATIONS: Lasix 40 mg daily, lisinopril 40 mg daily. REVIEW OF SYSTEMS: General: Patient has reported fever. HEENT: He has reported significant headache over the last several weeks. Cardiovascular: Denies chest pain or palpitations. Respiratory: Did have some upper respiratory congestion but no reported shortness of breath. Gastrointestinal: Has reported abdominal pain worse on the right side, nausea, vomiting every day for the last several weeks. Decrease in appetite. No reported diarrhea. Vital Signs: Temperature 99.1 degrees, pulse 78, respirations 14, blood pressure 139/71. General: Patient is awake, alert, in no acute distress. HEENT: Normocephalic, atraumatic. Pupils equal, round, reactive to light. Sclerae nonicteric. Respiratory: Lung sounds essentially clear. Cardiovascular: Regular rate and rhythm. Abdomen: Soft. He does have some tenderness in the right upper quadrant. Dr. Marley has also seen and examined the patient. Reports swelling nodular area just below the right rib cage approximately 2 cm. LABORATORY: Hematology. WBC 10.89 decreased from 13.48 on admission, hemoglobin 14.2, hematocrit 39.4, MCV 87.0, platelets 77,000. Coagulation. Pro time 18.2, INR 1.40, PTT 39.0. Chemistry, sodium 132, potassium 3.4, chloride 97, CO2 of 23, BUN 31, creatinine 1.4, glucose 98, total bilirubin 2.75, GGT 26, AST 109, ALT 115, alkaline phosphatase 60, albumin 2.8, amylase 47, lipase 12. TSH 0.92. Imaging studies as reported above. ASSESSMENT AND PLAN: 1. Sepsis with gram positive bacteremia continuing on antibiotics. Infectious disease has been consulted. 2. Congestive heart failure, severe dilated cardiomyopathy. 3. Transaminitis most likely related to his infectious process. Ultrasound has been done that showed mild fatty liver. We will order hepatitis profile. Continue to follow his liver function tests. Further plans will be made according to his progress. Patient was also seen by Dr. Marley. Dictated by COBY Neal for Anuj Marley MD cc: COBY Joshua MD
[2018-08-19] MEDS: LOVENOX SUBQ SCH (22:34)
[2018-08-20] MEDS: NS 1,000 ML IV SCH (01:07)
[2018-08-20 06:10] LABS: AGAP 12; ALB/GLOB RATIO 0.8; ALBUMIN 2.6 g/dL (3.5-5.0); ALKALINE PHOSPHATASE 47 U/L (32-122); BUN 17 mg/dL (8-22); CALCIUM 8.1 mg/dL (8.8-10.2); CHLORIDE 100 mmol/L (98-107); COSMO 271; CREATININE 0.9 mg/dL (0.7-1.2); ESTIMATED GFR > 60; GLUCOSE 92 mg/dL (70-104); GOT 88 U/L (10-34); GPT 95 U/L (10-44); POTASSIUM 2.9 mmol/L (3.5-5.1); SODIUM 135 mmol/L (136-145); TCO2 23 mmol/L (25-35); TOTAL BILIRUBIN 1.62 mg/dL (0.20-1.00); TOTAL PROTEIN 5.9 g/dL (6.3-8.3)
[2018-08-20 06:30] LABS: BASO# 0.02 X1000 (0.0-0.2); BASO% 0.3 % (0.0-0.8); EOS# 0.06 X1000 (0.0-0.7); EOS% 0.8 % (0.0-10.0); HEMOGLOBIN 12.3 g/dL (14.0-18.0); IMM GRAN# 0.04 X1000 (0.0-0.04); IMM GRAN% 0.5 % (0.0-0.5); LYMPH# 1.22 X1000 (1.2-3.4); LYMPH% 16.2 % (20.5-51.1); MCH 31.1 PG (27-31); MCHC 36.2 g/dL (33-37); MCV 86.1 FL (81-99); MONO% 23.8 % (1.7-9.3); MPV 12.4 FL (7.4-10.4); NEUT# 4.41 X1000 (1.4-6.5); NEUT% 58.4 % (42.2-75.2); PLT 95 X1000 (130-400); RBC 3.95 XMIL (4.7-6.1); RDW 11.6 % (11.5-14.5); WBC 7.55 X1000 (4.8-10.8)
[2018-08-20 07:58] LABS: BANDS 4 % (0-1); EOS 2 % (1-10); LYMPHS 13 % (21-51); MONO 11 % (1-9); SEGS 70 % (42-75)
[2018-08-20] MEDS ORDERED: VANCOMYCIN 1,100 MG in NS 250 ML IV SCH (08:00)
[2018-08-20] MEDS ORDERED: VANCOMYCIN 1,600 MG in NS 250 ML IV SCH (08:00)
--- NOTE | 2018-08-20 08:49 | INFECTIOUS DISEASE PROGRESS NO ---
DATE: 08/20/2018 PRESENT ILLNESS: The patient has a gram-positive coccal bacteremia. He also appears to have a fungal urinary tract infection. MEDICATIONS: The patient currently is receiving daptomycin as a single agent. PHYSICAL EXAMINATION: Vital Signs: Temperature is 98.9 degrees, pulse 83, respirations 23, blood pressure 127/77. The patient is 5 feet 3 inches tall, weighs 181 pounds. General: This is an obese, young male. He is in no acute distress. HEENT: He can hear my spoken words and see near objects. I looked into his eyes. I did not see any hemorrhages or papilledema. I looked in his ears, and I saw a little bit of cerumen, but I did not see any inflammation or purulent drainage. Neck: No meningismus. Lungs: Clear to auscultation. Cardiovascular: Heart rate is regular. Abdomen: Soft and nontender. Neurologic: The patient is alert. He is able to ambulate. He does not have any tremor. IMAGING AND LABORATORY DATA: CBC and CMP are pending. As mentioned above, the patient's blood cultures are growing gram-positive cocci. The urine culture thus far is negative, but on urinalysis, white blood cells and yeast were seen. The patient's abdominal ultrasound showed a mild fatty infiltration of the liver. The patient's abdomen and pelvic CT scan showed splenomegaly and minimal left nephrolithiasis without evidence of hydronephrosis. Chest x-ray shows cardiomegaly with clear lungs. ASSESSMENT AND PLAN: The patient has a bacteremia and possible fungal urinary tract infection. For right now, I am going to continue daptomycin pending identification of the patient's organism. Usually, most fungal urinary tract infections are asymptomatic and do not require treatment, and in this situation, I am not going to start any antifungal therapy. The patient is not having any dysuria or suprapubic or bilateral costovertebral angle pain. COMORBIDITIES: The patient does admit to drug use, although he says all the drugs he uses are by mouth and not injection. I am still concerned that he may still do IV drug abuse, and his bacteremia is secondary to that. cc: Jj Oconnor MD
[2018-08-20] MEDS ORDERED: KLOR-CON PO ONE (14:18)
[2018-08-20] MEDS: KEFZOL 2 GM/D5W 2 GM/50 ML IVPB IV SCH ×2 (14:28→23:04)
--- NOTE | 2018-08-20 14:42 | PROGRESS NOTE ---
DATE: 08/20/2018 SUBJECTIVE: This morning Mr. Panda refers to be doing well. He does not have any more fever. No chills. His headache is also under control. No new complaints. OBJECTIVE: His Vitals: Blood pressure is 137/85, pulse of 73, respiration is 15, temperature 98.0 degrees, patient is saturating 100% on room air. On general exam, Mr. Panda is a 27-year- old gentleman. He is in bed, no distress. Mucosa is pink and moist. Anicteric. Acyanotic. Neck is supple. Chest: Good air entry bilaterally. No crepitations. No rhonchi. Cardiovascular: Regular rate and rhythm. Abdomen is soft, nontender. Bowel sounds present. Extremities: No pedal edema. Central Nervous System: Patient is awake, alert, oriented. There is no focal neurological deficit. LABORATORY DATA: WBC is down to 7.55, hemoglobin is 12.3, platelet count of 95,000. Chemistry is also reviewed. Sodium is 135, potassium is 2.9, creatinine is normalized at 0.9. AST and ALT also trending down. MICROBIOLOGY DATA: So far urine culture shows no growth. Blood culture shows Staphylococcus aureus which is oxacillin sensitive. ASSESSMENT: 1. Sepsis with methicillin-sensitive Staphylococcus aureus bacteremia. Patient has been changed to Ancef as antimicrobial. Infectious Disease is on board. An echocardiogram has been done to rule out endocarditis. 2. Acute kidney injury secondary to volume depletion, improved. 3. History of severe dilated cardiomyopathy with ejection fraction of 20%. The patient is currently euvolemic. He is on his home medications. 4. Transaminitis secondary to sepsis, getting better. Viral hepatitis serology has also been sent. We are pending the result. 5. Lactic acidosis on presentation secondary to sepsis. Bicarbonate value has normalized. In general, Mr. Panda seems to be doing well. He feels better. He feels stronger. He has been afebrile. His Blood culture is now showing MSSA. Antibiotics have been changed to Ancef. Echocardiogram has been done; we are still waiting on the official report. The plan is to rule out possible endocarditis. We are going to follow up with ID for further recommendations. DISPOSITION: Mr. Panda' disposition is going to depend on the rest of the hospital course. cc: Ender Anderson MD Addendum: Echo shows mitral valve vegetation. Ass: Mitral Valve Endocarditis with MSSA bacteremia. Patient on Ancef, may be switched to Nafcillin. ID is on board so will defer antimicrobial therapy recommendations to them. MTDD
--- NOTE | 2018-08-20 15:05 | GASTROENTEROLOGY PROGRESS NOTE ---
DATE: 08/20/2018 SUBJECTIVE: Patient is awake, alert, no acute distress. He states he feels a little better today. He is following with Dr. Oconnor for treatment of bacteremia his liver function tests have improved some today. OBJECTIVE: Vital Signs: Temperature 99.5 degrees, pulse 77, respirations 14, blood pressure 134/76. General: Patient is awake, alert, no acute distress. Abdomen: Soft. Nontender except for he does have some tenderness on the right abdomen under the ribcage with a nodular area felt that was tender. DIAGNOSTIC RESULTS: Laboratory: Hematology: WBC 7.55 hemoglobin 12.3, hematocrit 34.0, MCV 86.1, platelet 95,000. Chemistry: Sodium 135, potassium 2.9, chloride 100, CO2 of 23, BUN 17, creatinine 0.9, glucose 92, calcium 8.1, total bilirubin 1.62 AST 88, ALT 95, alkaline phosphatase 47. Abdominal ultrasound showed mild fatty infiltration of the liver. Gallbladder was noted to be normal with no stones. ASSESSMENT AND PLAN: 1. Sepsis with gram-positive bacteremia, following with infectious disease. On antibiotics. 2. Transaminitis. Liver function tests have improved, hepatitis panel is pending. 3. Congestive heart failure, cardiomyopathy. Patient follows with Dr. Gaines as an outpatient. An echocardiogram has been ordered today. 4. We will continue to follow his liver function tests, waiting on hepatitis profile results. 5. Further plans will be made according to his progress I have discussed this case with Dr. Marley. Dictated by COBY Neal for Anuj Marley MD cc: COBY Joshua MD [facility]
--- NOTE | 2018-08-20 17:54 | ECHO REPORT ---
ORDER DATE: 08/20/2018 INDICATION FOR STUDY: Methicillin-sensitive Staphylococcus aureus bacteremia. Evaluate for endocarditis. FINDINGS: 1. Right atrium appears normal size. 2. Mild tricuspid regurgitation. RV systolic pressure of 36. 3. Normal RV size and systolic function. 4. No significant pulmonic insufficiency. 5. Mild left atrial enlargement with dimension of 4.1 cm. 6. No mitral prolapse. There is probable moderate mitral regurgitation with an eccentric jet of mitral regurgitation. There is an echodensity consistent with a vegetation adherent to the base of the posterior mitral leaflet, likely suggesting endocarditis. 7. Normal LV size, end-diastolic dimension of 5.7. Mild left ventricular hypertrophy with a posterior and interventricular septal wall thickness 1.3 and 1.2 cm respectively. The LV systolic function appears reduced with an estimated EF of 40%. 8. The aortic valve opens well. It is trileaflet with no evidence of stenosis or insufficiency. 9. The aorta appears normal in visualized segments. 10. No pericardial effusion seen. cc: MD Ender Boone MD
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
[2018-08-20] MEDS: LOVENOX SUBQ SCH (23:04)
[2018-08-20] MEDS: MORPHINE IV PRN (23:10)
[2018-08-21] MEDS: KEFZOL 2 GM/D5W 2 GM/50 ML IVPB IV SCH ×3 (05:54→12:19)
[2018-08-21 06:52] LABS: BASO# 0.02 X1000 (0.0-0.2); BASO% 0.3 % (0.0-0.8); EOS# 0.13 X1000 (0.0-0.7); HEMATOCRIT 31.7 % (42.0-52.0); HEMOGLOBIN 11.2 g/dL (14.0-18.0); IMM GRAN# 0.07 X1000 (0.0-0.04); IMM GRAN% 1.1 % (0.0-0.5); LYMPH# 1.31 X1000 (1.2-3.4); LYMPH% 19.8 % (20.5-51.1); MCH 30.6 PG (27-31); MCHC 35.3 g/dL (33-37); MCV 86.6 FL (81-99); MONO# 1.67 X1000 (0.11-0.59); MONO% 25.2 % (1.7-9.3); NEUT# 3.42 X1000 (1.4-6.5); NEUT% 51.6 % (42.2-75.2); PLT 110 X1000 (130-400); RBC 3.66 XMIL (4.7-6.1); RDW 11.8 % (11.5-14.5); WBC 6.62 X1000 (4.8-10.8)
[2018-08-21 07:13] LABS: AGAP 9; CHLORIDE 99 mmol/L (98-107); GLUCOSE 101 mg/dL (70-104); POTASSIUM 2.7 mmol/L (3.5-5.1); SODIUM 135 mmol/L (136-145); TCO2 27 mmol/L (25-35)
[2018-08-21 07:14] LABS: ALB/GLOB RATIO 0.9; ALBUMIN 2.8 g/dL (3.5-5.0); ALKALINE PHOSPHATASE 64 U/L (32-122); BUN 16 mg/dL (8-22); CALCIUM 8.1 mg/dL (8.8-10.2); COSMO 271; CREATININE 0.8 mg/dL (0.7-1.2); EOS 2 % (1-10); ESTIMATED GFR > 60; GOT 60 U/L (10-34); GPT 68 U/L (10-44); LYMPHS 20 % (21-51); MONO 25 % (1-9); SEGS 53 % (42-75); TOTAL BILIRUBIN 1.24 mg/dL (0.20-1.00); TOTAL PROTEIN 5.9 g/dL (6.3-8.3)
[2018-08-21 11:24] LABS: HEPATITIS PROFILE ACUTE SEE COMMENTS
[2018-08-21] MEDS: NAFCIL 2 GM in NS 100 ML IV SCH ×2 (16:27→21:12)
--- NOTE | 2018-08-21 19:58 | PROGRESS NOTE ---
DATE: 08/21/2018 INTERVAL HISTORY: Patient is largely asymptomatic at this point. Minimal dyspnea with exertion. Did have a low-grade fever overnight to 100.8. No other acute events overnight. REVIEW OF SYSTEMS: A 12-point review of systems is negative except as per interval history. LABORATORY: WBC 6.6, hemoglobin 11.2, hematocrit 31.7, platelets 110,000. Sodium 135, potassium 2.7. Total bilirubin 1.24, AST 60, ALT is 68. Initial blood culture MSSA. Repeat blood culture is pending. OBJECTIVE: General: No acute distress. Vitals: Temperature max 100.8 degrees, pulse 67, respirations 18, blood pressure 134/86, O2 saturation 100%. HEENT: Normocephalic, atraumatic. Moist mucous membranes. No cervical adenopathy. Cardiovascular: Regular rate and rhythm. No murmurs, rubs, or gallops. Pulmonary: Clear to auscultation bilaterally. No wheezing, rales, or rhonchi. Abdomen: Soft, nontender, nondistended. Bowel sounds positive. Extremities: Peripheral pulses intact. No clubbing, cyanosis, or edema. Neurologic: Cranial nerves grossly intact. No focal deficit identified. Psychiatric: Normal mood and affect. Awake, alert, oriented x3. Skin: No new rashes or lesions identified. ASSESSMENT/PLAN: 1. Sepsis with methicillin-susceptible Staphylococcus aureus bacteremia. Infectious Disease following. Patient remains on antibiotics with nafcillin. Repeat blood culture is being drawn today. Did have 1 low-grade fever overnight, which is somewhat concerning, but will hold the course for now. Exact etiology unclear. The patient does endorse occasional marijuana use, but denies any recent IV drug use. Echocardiogram with mildly decreased EF at 40, which is actually improved from previous. No clear evidence of vegetation/endocarditis. If blood cultures fail to clear, then will consider CHACHA. 2. Acute kidney injury. Resolved with fluids and treatment of underlying sepsis. 3. Chronic congestive heart failure. Continue home medications. Ejection fraction actually appears to be somewhat improved on most recent echocardiogram. Has been as low as 20 in the past, but appears to be up to 40 here. 4. Transaminitis thought to be secondary to sepsis. Improving. Monitor. 5. Disposition. Possible discharge in a couple of days if his repeat blood cultures remain negative. If repeat blood cultures are persistently positive or fevers worsen, then may have to consider additional workup and CHACHA.
--- NOTE | 2018-08-21 21:51 | GASTROENTEROLOGY PROGRESS NOTE ---
DATE: 08/21/2018 SUBJECTIVE: The patient was awake and alert, in no acute distress. His liver function tests have improved some today. OBJECTIVE: Vital signs: Temperature 98.1 degrees, pulse 66, respirations 16, blood pressure 144/79. Generally the patient is awake and alert, in no acute distress. LABORATORY DATA: Hematology: WBC 6.62, hemoglobin 11.2, hematocrit 31.7, MCV 86.6, platelets 110,000. Chemistry: Sodium 135, potassium 2.7, chloride 99, CO2 is 27, BUN 16, creatinine 0.8, glucose 101, total bilirubin 1.24, AST 60, ALT 68, alkaline phosphatase 64. Microbiology: Culture showing Staphylococcus aureus from 08/20/2018. He has had repeat blood cultures today that are pending. The patient is on antibiotics. ASSESSMENT AND PLAN: 1. Sepsis. Antibiotics followed by Dr. Oconnor. 2. Transaminitis. His liver function tests are improving. Hepatitis profile was nonreactive. 3. Congestive heart failure, cardiomyopathy. He follows with Dr. Gaines as his clinical care leader. We will continue to follow during the patient's hospital course. His liver function tests are improving. Elevation most likely related to bacteremia. He had an echocardiogram on 08/20/2018. Results are reviewed. There was noted moderate mitral regurgitation. There was echodensity consistent with a vegetation adherent to the base of the posterior mitral leaflet, likely suggesting endocarditis. Continue management per primary team and Infectious Disease. I have discussed this case with Dr. Marley. Dictated by COBY Neal for Anuj Marley MD cc: COBY Joshua MD
--- NOTE | 2018-08-21 23:41 | INFECTIOUS DISEASE PROGRESS NO ---
DATE: 08/21/2018 HISTORY OF PRESENT ILLNESS: Mr. Panda has an oxacillin-sensitive Staph aureus bacteremia, and unfortunately on his echo reading today, there is a mitral echodensity which is suggestive of endocarditis. MEDICATIONS: He is receiving cefazolin 2 g IV every 8 hours, which we will change today. PHYSICAL EXAMINATION: Vital Signs: Temperature is 98.1 degrees, pulse rate 66, respiratory rate 16, blood pressure 144/79, O2 saturation is 100% on room air. General: This is a fairly healthy- looking, young man, who is sitting up in bed. Currently, in no acute distress. HEENT: Atraumatic, normocephalic. Oral mucous membranes are pink and moist. Conjunctivae are pink. Neck: Supple. Trachea is midline. Respiratory: Lung sounds are clear to auscultation bilaterally. No work of breathing is noted. Cardiovascular: Heart rate is regular. Abdomen: Soft, round, and nontender. Bowel sounds are active. Neurologic: He is awake, alert, oriented, and able to ambulate independently. LABORATORY AND X-RAY: Today, his white count is 6.62, hemoglobin 11.2, platelet count 110,000. Creatinine is 0.8, estimated GFR is greater than 60. Total bilirubin is 1.24, AST 60, ALT 68, alkaline phosphatase 64. His previous blood cultures grew oxacillin-sensitive Staph aureus in both cultures. Urine showed no growth. There is a set of blood cultures that have been drawn today and are pending. No imaging reports today. However, yesterday, the echocardiogram showed an echodensity consistent with a vegetation adherent to the posterior mitral leaflet, likely suggesting endocarditis. ASSESSMENT/PLAN: Mr. Panda has oxacillin-sensitive Staphylococcus aureus bacteremia with endocarditis. I have talked to him about this situation and the importance of treatment. He states he has been asked to have a PICC line before, but decided he did not want a PICC line in the past. I have talked to him about the gravity of the situation and that he will need a PICC line for 6 weeks due to the endocarditis as well as the bacteremia with left forearm hardware. He has agreed to the treatment plan, which I have explained extensively. Once his blood cultures are sterile, we will need to put in the PICC line and [facility] has already agreed to look in to the provision of his IV antibiotic treatment, which will be nafcillin 12 g IV daily as a continuous dose, to be changed out once a day for 6 weeks. Day 1 will be the first day of sterile blood cultures. Orders for Process Description Writer to consult [facility] are already in the computer, and we will await the sterile blood cultures. The patient will need to see us in the office at 3 weeks and then again at 6 weeks. I have talked to him extensively about not using the PICC line for anything other than his IV antibiotics due to his history of drug abuse. He maintains that he has never done IV drugs in the past and only taken illicit drugs by mouth. It will be important that the patient signs a PICC line treatment contract before discharge. These plans have been discussed with and recommended by Dr. Oconnor. COMORBIDITIES: for Mr. Panda include illicit drug abuse, nonischemic cardiomyopathy, and cigarette smoking. Dictated by COBY Nelson for Jj Oconnor MD cc: Jj Oconnor MD MTDD
[2018-08-22] MEDS: NAFCIL 2 GM in NS 100 ML IV SCH ×6 (00:37→21:09)
[2018-08-22] MEDS: LOVENOX SUBQ SCH (05:22)
--- NOTE | 2018-08-22 18:03 | INFECTIOUS DISEASE PROGRESS NO ---
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 The patient has metal in his left arm, and this could have become infected hematogenously. MEDICATIONS: Yesterday the patient was switched from cefazolin to nafcillin because the repeat blood cultures were still positive for Staph aureus. PHYSICAL EXAMINATION: Vital Signs: Temperature is 98.8 degrees, pulse 65, respirations 16, blood pressure 129/73. General: This is a fairly healthy-appearing, young male. He is in no acute distress. Head/eyes/ears/nose/throat: He can hear my spoken words and see near objects. Neck: The patient does not have any pain in his neck when he moves his neck or head. Lungs: Clear to auscultation. Cardiovascular: Heart rate is regular. Abdomen: Soft and nontender. Neurologic: The patient is alert. He carries on a coherent conversation. He ambulates without difficulty. He does not have a tremor. Extremities: The patient's left arm has a metal plate on it. The arm is not swollen or draining or tender. LABORATORY AND X-RAY: The patient's 1 of 2 repeat blood cultures is growing a gram-positive coccus, which most likely will be due to Staph aureus. The hepatitis profile was nonreactive. Creatinine is 0.8. GFR is greater than 60. The CBC shows a white count of 6620, hemoglobin 11.2, and platelet count 110,000. ASSESSMENT AND PLAN: The patient has an oxacillin sensitive Staph aureus endocarditis. There may be infection of the patient's upper extremity metal that is on his arm due to a fracture. My plan is to switch the patient to nafcillin and repeat his blood cultures on Sunday, August 24, 2018. Day #1 of treatment with nafcillin will be the first day that the repeated blood cultures are sterile. In any event, the patient will need a 6-week course of IV nafcillin, and following that, I will most likely put the patient on Keflex 500 mg p.o. every 12 hours on a chronic basis in case the patient's metal in his left arm became infected hematogenously. COMORBIDITIES: The patient uses illicit drugs. He has cardiomyopathy, and he smokes cigarettes. cc: Jj Oconnor MD
--- NOTE | 2018-08-22 19:24 | PROGRESS NOTE ---
DATE: 08/22/2018 INTERVAL HISTORY: Patient remains relatively asymptomatic. No further fevers, but repeat blood cultures this morning were reportedly positive again for gram-positive cocci. No new complaints. No other acute events overnight. REVIEW OF SYSTEMS: Twelve-point review of systems negative except as per interval history. LABS: Initial blood cultures with MSSA. Repeat blood cultures reportedly positive for gram- positive cocci. VITALS: T-max 99.2 degrees, pulse 94, respirations 20, blood pressure 137/78, O2 saturation 100% on room air. PHYSICAL EXAMINATION: General: No acute distress. Vitals: As above. HEENT: Normocephalic, atraumatic. Moist mucous membranes. Neck: No cervical adenopathy. Cardiovascular: Regular rate and rhythm. No murmur noted. Pulmonary: Clear to auscultation bilaterally. No wheezing, rales, or rhonchi. Abdomen: Soft, nontender, nondistended. Bowel sounds positive. Extremities: Peripheral pulses intact. No clubbing or cyanosis. Neurologic: Cranial nerves grossly intact. No focal deficits identified. Psychiatric: Normal mood and affect. Awake, alert, oriented x3. Skin: No new rashes or lesions identified. ASSESSMENT AND PLAN: 1. Endocarditis and methicillin-sensitive Staphylococcus aureus bacteremia. Infectious Disease following. Repeat blood cultures from the 10th are again positive. Discussed with Infectious Disease. They plan on giving him a couple days of nafcillin which was started yesterday and repeating blood cultures at that time. Echocardiogram does show a vegetation on the posterior mitral leaflet. Continue antibiotics and monitor closely. 2. Acute kidney injury, resolved with fluids and treatment of sepsis. 3. Chronic congestive heart failure. Continue home medications. Ejection fraction of 240. It has been as low as 20 in the past. 4. Transaminitis likely secondary to sepsis. Improving. Monitor. DISPOSITION: With his repeat cultures remaining positive, he is likely stuck in hospital least over the weekend. Once blood cultures are cleared, then we can consider getting a PICC line and setting him up with home nafcillin for a total of 6 weeks.
[2018-08-22] MEDS: MORPHINE IV PRN (22:33)
--- NOTE | 2018-08-23 00:58 | GASTROENTEROLOGY PROGRESS NOTE ---
DATE: 08/22/2018 SUBJECTIVE: Patient is awake and alert, in no acute distress. His liver function tests are improving. He did have an echocardiogram Doppler that showed a vegetation adherent to the base of the posterior mitral leaflet suggesting endocarditis. He is following with Dr. Oconnor for antibiotics. OBJECTIVE: Vital Signs: Temperature 98.3 degrees, pulse 62, respirations 16, blood pressure 128/71. General: Patient is awake and alert, in no acute distress. LABORATORY: Hematology: WBC 6.62, hemoglobin 11.2, hematocrit 31.7, MCV 86.6. Chemistry: Sodium 135, potassium 2.7, chloride 99, CO2 of 27, BUN 16, creatinine 0.8, glucose 101, calcium 8.1, total bilirubin 1.24, AST 60, ALT 68. His GGT was normal, 26. Alkaline phosphatase 64. ASSESSMENT AND PLAN: 1. Elevated liver function tests are improving. 2. Sepsis with methicillin-susceptible Staphylococcus aureus bacteremia. Patient is on antibiotics, following with Infectious Disease. 3. Endocarditis. Again, patient is on antibiotics and will need to have long-term antibiotics as an outpatient. Will continue to follow during his hospital course. I recommend patient follow up with us in the office as an outpatient. I have discussed this case with Dr. Marley. Dictated by COBY Neal for Anuj Marley MD cc: COBY Joshua MD
[2018-08-23] MEDS: NAFCIL 2 GM in NS 100 ML IV SCH ×6 (01:33→20:15)
[2018-08-23] MEDS: LOVENOX SUBQ SCH (04:59)
[2018-08-23] MEDS ORDERED: NS 500 ML ONE (19:09)
[2018-08-23] MEDS: BENADRYL IV SCH (19:10)
--- NOTE | 2018-08-23 20:09 | INFECTIOUS DISEASE PROGRESS NO ---
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 The patient has metal in his left arm, which could have become infected hematogenously. MEDICATIONS: The patient while on cefazolin had blood cultures drawn and they were positive for gram-positive cocci. Presumably this will be Staph aureus. The patient 2 days ago was switched from cefazolin to nafcillin. PHYSICAL EXAMINATION: Vital Signs: Temperature is 98.3 degrees, pulse 60, respirations 16, blood pressure 142/82. General: This is a fairly healthy-appearing young male. He is in no acute distress. Head, eyes, ears, nose, and throat: He can hear my spoken words and see near objects. He does not have any white patches in his mouth. Neck: He does not have any pain in his neck when he turns his neck or his head. Lungs: Clear to auscultation. Cardiovascular: Heart rate is regular. Abdomen: Soft and nontender. Neurologic: Patient is alert. He ambulates without difficulty. There is no tremor. Extremities: The patient's left arm has a metal plate in it. The arm is not swollen or draining. LAB AND X-RAY: There is no new radiographic study today. The patient's blood cultures drawn on August 21 are growing gram-positive cocci. 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 My plan is to continue the patient on nafcillin and I have ordered blood cultures to be drawn today. If the repeat blood cultures are sterile, then on SundayAugust 26 I will have a PICC placed and hopefully the patient will be discharged home. I plan to treat the patient for a total of 6 weeks with IV nafcillin for 2 reasons, 1 he has endocarditis and 2, he has a metal plate in his left arm which may have become infected hematogenously. Following the 6 weeks of antibiotics I plan to put the patient on Keflex 500 mg p.o. every 12 hours on a chronic basis in case the metal in his arm became infected hematogenously. COMORBIDITIES: The patient uses illicit drugs. He has a cardiomyopathy and he smokes cigarettes. cc: Jj Oconnor MD
--- NOTE | 2018-08-23 21:00 | GASTROENTEROLOGY PROGRESS NOTE ---
DATE: 08/23/2018 SUBJECTIVE: The patient is awake and alert, in no acute distress. He is sitting up on the side of the bed. His liver function tests have been improving over the last several days. Most likely elevation related to infectious process. The patient is now being treated for endocarditis, following with Infectious Disease. OBJECTIVE: Vital signs: Temperature 98.3 degrees, pulse 60, respirations 16, blood pressure 142/82. Generally the patient is awake and alert, in no acute distress. LABORATORY DATA: Hematology: WBC 6.62, hemoglobin 11.2, hematocrit 31.7, MCV 86.6, platelets 110,000. Chemistry: Sodium 135, potassium 2.7, chloride 99, CO2 is 27, BUN 16, creatinine 0.8, glucose 101, calcium 8.1. Total bilirubin 1.24, AST 60, ALT 68. ASSESSMENT AND PLAN: 1. Elevated liver function tests have improved. 2. Sepsis, methicillin-susceptible Staphylococcus aureus. Patient following with Infectious Disease. 3. Endocarditis. The patient will require long-term antibiotics as an outpatient, following with Dr. Oconnor. 4. His liver function tests are improving. Most likely elevation related to infectious process. Gastroenterology will sign off for now. Please reconsult us if needed. The patient can follow up with us in the office if needed. I have discussed this case with Dr. Marley. Dictated by COBY Neal for Anuj Marley MD cc: COBY Joshua MD
--- NOTE | 2018-08-23 21:58 | PROGRESS NOTE ---
DATE: 08/23/2018 INTERVAL HISTORY: The patient remains stable. No fevers. Repeating blood cultures. No new complaints. No acute events overnight. REVIEW OF SYSTEMS: A 12-point review of systems is negative, except as per interval history. LABORATORY: First set of blood cultures positive for MSSA. Second set of blood cultures positive for gram-positive cocci, presumably will also be MSSA. A third set of blood cultures pending today PHYSICAL EXAMINATION: vitals: Temperature max 98.6 degrees, pulse 61, respirations 16, blood pressure 141/80, O2 saturation 100% on room air. General: No acute distress. HEENT: Normocephalic, atraumatic. Moist mucous membranes. No cervical adenopathy. Cardiovascular: Regular rate and rhythm. No murmurs noted. Pulmonary: Clear to auscultation bilaterally. No wheezing, rales, or rhonchi. Abdomen: Soft, nontender, nondistended. Bowel sounds positive. Extremities: Peripheral pulses intact. No clubbing or cyanosis. Neurologic: Cranial nerves grossly intact. No focal deficits identified. Psychiatric: Normal mood and affect. Awake, alert, oriented x3. Skin: No new rashes or lesions identified. ASSESSMENT AND PLAN: 1. Endocarditis and methicillin-susceptible Staphylococcus aureus bacteremia. Infectious Disease following. First set of repeat blood cultures, again positive. Getting a third set of blood cultures today. If those remain negative, then may be able to get PICC line and discharge home with nafcillin continuous infusion on Sunday. Echocardiogram confirmed vegetation on posterior mitral leaflet. Monitor closely. 2. Acute kidney injury. Present on admission, but resolved with fluids and treatment of sepsis. 3. Chronic systolic congestive heart failure. Continue home medications. Most recent EF 40, has been as low as 20 in the past. 4. Transaminitis, likely secondary to his sepsis. Improved. Monitor.
[2018-08-24] MEDS: NAFCIL 2 GM in NS 100 ML IV SCH ×7 (00:48→20:51)
[2018-08-24] MEDS: BENADRYL IV SCH ×3 (01:23→15:35)
[2018-08-24] MEDS: LOVENOX SUBQ SCH (06:46)
--- NOTE | 2018-08-24 20:02 | PROGRESS NOTE ---
DATE: 08/24/2018 INTERVAL HISTORY: The patient remains stable. No fevers. Repeat blood cultures: No growth so far. No acute events overnight. No new complaints. REVIEW OF SYSTEMS: Twelve-point review of systems negative as per interval history. VITAL SIGNS: T-max 99.7 degrees, pulse 63, respirations 18, blood pressure 129/80, O2 saturation 100% on room air. OBJECTIVE: General: No acute distress. Vital signs as above. HEENT: Normocephalic, atraumatic. Moist mucous membranes. No cervical adenopathy. Cardiovascular: Regular rate and rhythm. No murmurs noted. Pulmonary: Clear to auscultation bilaterally. No wheezing, rales or rhonchi. Abdomen: Soft, nontender, nondistended. Bowel sounds positive. Extremities: Peripheral pulses intact. No clubbing or cyanosis. Neurologic: Cranial nerves grossly intact. No focal deficits seen. Psychiatric: Normal mood and affect. Awake, alert and oriented x3. Skin: No new lesions or rashes identified. ASSESSMENT AND PLAN: 1. Endocarditis and methicillin-sensitive Staphylococcus aureus bacteremia. Infectious Disease following. For set of repeat blood cultures was again positive, but third set no growth so far. If these remain negative, then may be able to get a peripherally inserted central catheter line and discharge with home nafcillin infusion on Sunday. Echocardiogram did confirm vegetation on posterior mitral leaflet. Monitor. 2. Acute kidney injury present on admission but now resolved. 3. Chronic systolic congestive heart failure. Continue home medications. Most recent ejection fraction 40%. Ejection fraction has been as low as 20% in the past. 4. Transaminitis likely secondary to sepsis, improved on last check. Monitor.
[2018-08-25] MEDS: NAFCIL 2 GM in NS 100 ML IV SCH ×6 (01:26→21:36)
[2018-08-25] MEDS: LOVENOX SUBQ SCH (06:11)
[2018-08-25] MEDS ORDERED: POTASSIUM CHLORIDE 60 MEQ in NS 500 ML IV ONE (10:35)
[2018-08-25 13:38] LABS: INR 1.08; PROTIME 14.9 Seconds (11.0-16.0)
--- NOTE | 2018-08-25 15:20 | PROGRESS NOTE ---
DATE: 08/25/2018 INTERVAL HISTORY: No acute events overnight. Remains afebrile. Blood cultures remain negative. The patient did lose IV access this afternoon. Nursing was unable to obtain a good peripheral IV. As most recent blood cultures are greater than 48 hours out and have remained negative, decided to go ahead and try and get him a PICC line. REVIEW OF SYSTEMS: Twelve point review of systems negative except as per interval history. LABS: INR 1.08. VITAL SIGNS: T-max 98.9 degrees, pulse 67, respirations 20, blood pressure 133/105, O2 saturation 100% on room air. PHYSICAL EXAMINATION: General: No acute distress. Vital signs: As above. HEENT: Normocephalic, atraumatic. Moist mucous membranes. No cervical adenopathy. Cardiovascular: Regular rate and rhythm. No murmurs noted. Pulmonary: Clear to auscultation bilaterally. No wheezing, rales, or rhonchi. Abdomen: Soft, nontender, nondistended. Bowel sounds positive. Extremities: Peripheral pulses intact. No clubbing or cyanosis. Neurologic: Cranial nerves grossly intact. No focal deficit seen. Psychiatric: Normal mood and affect. Awake, alert, and oriented x3. Skin: No new rashes or lesions noted. ASSESSMENT AND PLAN: 1. Endocarditis and methicillin-sensitive Staphylococcus aureus bacteremia. ID following. First set of repeat blood cultures was positive, but 3rd set is now 48 hours out with no growth. Obtaining PICC line as above. Hopeful that we can set him up with home IV antibiotics and discharge home tomorrow. Echocardiogram did confirm vegetation on posterior mitral leaflet. 2. Acute kidney injury. Remains resolved. 3. Chronic systolic congestive heart failure. Continue home medications. No sign of gross volume overload. Most recent EF 40%. EF has been as low as 20 in the past. 4. Transaminitis. Likely secondary to sepsis. Improved on last check.
[2018-08-25] MEDS ORDERED: NS 250 ML ONE (15:32)
[2018-08-25] MEDS ORDERED: NS 500 ML ONE (16:54)
[2018-08-26] MEDS: NAFCIL 2 GM in NS 100 ML IV SCH ×4 (00:55→14:52)
[2018-08-26] MEDS: LOVENOX SUBQ SCH (05:35)
[2018-08-26 06:46] LABS: BASO# 0.02 X1000 (0.0-0.2); BASO% 0.4 % (0.0-0.8); EOS# 0.08 X1000 (0.0-0.7); EOS% 1.5 % (0.0-10.0); HEMOGLOBIN 10.8 g/dL (14.0-18.0); IMM GRAN# 0.19 X1000 (0.0-0.04); IMM GRAN% 3.6 % (0.0-0.5); LYMPH# 1.46 X1000 (1.2-3.4); LYMPH% 27.7 % (20.5-51.1); MCH 30.6 PG (27-31); MCHC 33.8 g/dL (33-37); MCV 90.7 FL (81-99); MONO# 0.51 X1000 (0.11-0.59); MONO% 9.7 % (1.7-9.3); NEUT# 3.02 X1000 (1.4-6.5); NEUT% 57.1 % (42.2-75.2); PLT 297 X1000 (130-400); RBC 3.53 XMIL (4.7-6.1); WBC 5.28 X1000 (4.8-10.8)
[2018-08-26 06:49] LABS: INR 1.11; PROTIME 15.2 Seconds (11.0-16.0)
[2018-08-26 07:06] LABS: AGAP 7; ALB/GLOB RATIO 0.9; ALBUMIN 2.8 g/dL (3.5-5.0); ALKALINE PHOSPHATASE 54 U/L (32-122); BUN 7 mg/dL (8-22); CALCIUM 7.5 mg/dL (8.8-10.2); CHLORIDE 105 mmol/L (98-107); COSMO 275; CREATININE 0.7 mg/dL (0.7-1.2); ESTIMATED GFR > 60; GLUCOSE 93 mg/dL (70-104); GOT 27 U/L (10-34); GPT 37 U/L (10-44); POTASSIUM 3.2 mmol/L (3.5-5.1); SODIUM 139 mmol/L (136-145); TCO2 27 mmol/L (25-35); TOTAL BILIRUBIN 0.71 mg/dL (0.20-1.00)
[2018-08-26] MEDS: MORPHINE IV PRN ×2 (11:00→16:19)
[2018-08-26 16:00] VITALS: BP 165/91
--- NOTE | 2018-08-27 13:09 | DISCHARGE SUMMARY ---
ADMISSION DATE: 08/18/2018 DISCHARGE DATE: 08/26/2018 CONSULTS: 1. Gastroenterology. 2. Infectious Disease, Dr. Oconnor. PERTINENT STUDIES: CT abdomen and pelvis showing splenomegaly, minimal left upper lithiasis without evidence of hydronephrosis. Echocardiogram showing vegetation adherent to the base of the posterior mitral leaflet suggesting endocarditis, right ventricular pressure 36, EF 40%. First and second blood cultures with MSSA. A third set of blood cultures negative. Stool culture negative. C diff negative. Urine culture negative. Initial creatinine 2.2. Discharge creatinine 0.4. Initial WBC 10.8. Discharge WBC 5.2 DISCHARGE DIAGNOSES: 1. Endocarditis. 2. Methicillin-sensitive Staphylococcus aureus bacteremia. 3. Acute kidney injury. 4. Chronic systolic congestive heart failure. 5. Transaminitis. HOSPITAL COURSE: The patient presented initially with fever, chills, nausea, vomiting, and diarrhea. He had previously been to [place] with similar symptoms, had been given a prescription for an antibiotic, which he did not fill. He was found to have an acute kidney injury with creatinine 2.2, and an elevated lactate at 4.2. He was put on empiric antibiotics initially. Cultures grew MSSA, so he was transitioned to nafcillin. He did have some mild splenomegaly, but after consultation with GI it was felt that his elevated LFTs were related to his infection. They did improve rapidly with treatment of his infection. Repeat echo was performed, primarily looking for vegetation and endocarditis, which was found, but also showed improvement in his EF. Previous EF was as low as 20. EF on this occasion was 40. First and second blood cultures both were positive for MSSA, but third set remained negative. His acute kidney injury resolved rapidly with fluids and treatment of his infection. Once clearance of his blood culture was confirmed, PICC line was obtained and the patient was set up for home continuous infusion of nafcillin. This was in consultation with Infectious Disease. DISCHARGE VITAL SIGNS: Temperature 98.6 degrees, pulse 86, respirations 18, blood pressure 165/91, O2 saturation 100% on room air. DISCHARGE DIET: Cardiac. DISCHARGE MEDICATIONS: Nafcillin 2 g daily IV, lisinopril 40 mg p.o. daily, Lasix 40 mg p.o. daily, Toprol-XL 25 mg p.o. daily. FOLLOWUP AND PLAN: The patient is discharging home with IV antibiotics for his endocarditis and MSSA bacteremia to complete a 6 week course. Follow up with PCP and Infectious Disease. TIME SPENT: Greater than 30 minutes spent arranging discharge and counseling patient.
== END 2018-08-26 18:22 | disposition home or self-care (01) | DRG 872 ==
LOC: ED 15:15 → SUATTDRO 21:49 → 3S 21:49 → 4N 08-20 17:35
PROVIDERS: ATTEND Internal Medicine
CPT/HCPCS: 36569; 71020; 71046; 74176; 76705; 80053; 80074; 80101; 80301; 80307; 80320; 80324; 80345; 80346; 80353; 80358; 80361; 80365; 81001; 82055; 82150; 82550; 82948; 82977; 83605; 83690; 83735; 83992; 84100; 84443; 84484; 85025; 85610; 85730; 86308; 87040; 87045; 87046; 87077; 87088; 87186; 87205; 87324; 89055; 93005; 93306; 96361; 96365; 96375; 99285; 99291; A9270; G0431; G0434; G0479; G0480; G6040; J0690; J0878; J1200; J1650; J2270; J2543; J2550; J3370; J3480; J7030; J7040; J7050; S0032; XXXXX